=== PATIENT | male | born 1995 | race Caucasian/White ===

== ENCOUNTER 2019-03-20 17:50 | Emergency (ER) | payer SELFPAY ==
--- NOTE | 2019-03-20 17:55 | EDM.PDOC ---
ED HPI GENERAL MEDICAL PROBLEM - General Stated Complaint: RIGHT ARM INJURY Time Seen by Provider: 03/20/19 17:52 Source of Information: Reports: Patient History Limitations: Reports: No Limitations - History of Present Illness INITIAL COMMENTS - FREE TEXT/NARRATIVE: History of present illness: []Patient was trying to hit wood with his right hand slipped and hit his wrist instead. He has difficulty moving his ring and small finger contrary to pain. Patient is not up-to-date with tetanus Review of systems: As per history of present illness and below otherwise all systems reviewed and negative. Past medical history: As per history of present illness and as reviewed below otherwise noncontributory. Surgical history: As per history of present illness and as reviewed below otherwise noncontributory. Social history: No reported history of drug or alcohol abuse. Family history: As per history of present illness and as reviewed below otherwise noncontributory. Physical exam: General: Well developed, well nourished in NAD HEENT: Atraumatic, normocephalic, pupils reactive, negative for conjunctival pallor or scleral icterus, mucous membranes moist, throat clear, neck supple, nontender, trachea midline. Lungs: Clear to auscultation, breath sounds equal bilaterally, chest nontender. Heart: S1S2, regular, negative for clicks, rubs, or JVD. Abdomen: NABS, Soft, nondistended, nontender. Negative for masses or hepatosplenomegaly. Negative for costovertebral tenderness. Pelvis: Stable nontender. Genitourinary: Deferred. Rectal: Deferred. Extremities: Atraumatic, negative for cords or calf pain. Neurovascular unremarkable. Neuro: Awake, alert, oriented. Cranial nerves II through XII unremarkable. Cerebellum unremarkable. Motor and sensory unremarkable throughout. Exam nonfocal. Skin:warm and dry Diagnostics: X-ray right hand and forearm negative for fractures Therapeutics: Ibuprofen, tetanus status updated, splint ED Course: Stable Impression: Right hand/wrist brain with contusion Prescriptions: Patient declined any prescriptions for pain control Plan: Take meds as directed, follow up with your primary care physician, return to ER if symptoms worsen or change. Definitive disposition and diagnosis as appropriate pending reevaluation and review of above. Right Wrist Pain Score (Numeric/FACES): 5 - Related Data Allergies Allergy/AdvReac Type Severity Reaction Status Date / Time No Known Allergies Allergy Verified 03/20/19 18:01 Home Meds: Home Meds . [No Known Home Meds] 03/20/19 [History] Review of Systems - Review of Systems Review Of Systems: See Below ED EXAM, GENERAL - Physical Exam Exam: See Below (The history of present illness) Course - Vital Signs Last Recorded V/S: Last Vital Signs Temp 98.0 F 03/20/19 19:22 Pulse 68 03/20/19 19:22 Resp 18 03/20/19 19:22 BP 105/52 L 03/20/19 19:22 Pulse Ox 97 03/20/19 19:22 - Orders/Labs/Meds Orders: Active Orders 24 hr Category Date Time Status Splinting [RC] ASDIRECTED Care 03/20/19 19:08 Active Vaccines to be Administered [RC] PER UNIT ROUTINE Care 03/20/19 18:00 Active Meds: Medications Discontinued Medications Generic Name Dose Route Start Last Admin Trade Name Freq PRN Reason Stop Dose Admin Diphtheria/Tetanus/Acell Pertussis 0.5 ml 03/20/19 18:00 03/20/19 18:19 Adacel IM 03/20/19 18:01 0.5 ml .ONCE ONE Administration Ibuprofen 600 mg 03/20/19 18:00 03/20/19 18:20 Motrin PO 03/20/19 18:01 600 mg ONETIME ONE Administration Departure - Departure Time of Disposition: 10:39 Disposition: Home, Self-Care 01 Clinical Impression: Sprain of wrist Qualifiers: Encounter type: initial encounter Laterality: right Qualified Code(s): S63.501A - Unspecified sprain of right wrist, initial encounter - Discharge Information *PRESCRIPTION DRUG MONITORING PROGRAM REVIEWED*: No *COPY OF PRESCRIPTION DRUG MONITORING REPORT IN PATIENT LILY: No Instructions: Wrist Splint, Adult, [id number], Wrist Sprain, Adult Referrals: PCP,None [Primary Care Provider] - Forms: ED Department Discharge Additional Instructions: The following information is given to patients seen in the emergency department who are being discharged to home. This information is to outline your options for follow-up care. We provide all patients seen in our emergency department with a follow-up referral. The need for follow-up, as well as the timing and circumstances, are variable depending upon the specifics of your emergency department visit. If you don't have a primary care physician on staff, we will provide you with a referral. We always advise you to contact your personal physician following an emergency department visit to inform them of the circumstance of the visit and for follow-up with them and/or the need for any referrals to a consulting specialist. The emergency department will also refer you to a specialist when appropriate. This referral assures that you have the opportunity for follow-up care with a specialist. All of these measure are taken in an effort to provide you with optimal care, which includes your follow-up. Under all circumstances we always encourage you to contact your private physician who remains a resource for coordinating your care. When calling for follow-up care, please make the office aware that this follow-up is from your recent emergency room visit. If for any reason you are refused follow-up, please contact the [facility] Emergency Department at and asked to speak to the emergency department charge nurse. Ibuprofen, ice, elevation, follow up with PMD as needed [facility] [address] [place] [address] - My Orders Last 24 Hours: My Active Orders 03/20/19 18:00 Vaccines to be Administered [RC] PER UNIT ROUTINE 03/20/19 19:08 Splinting [RC] ASDIRECTED - Assessment/Plan Last 24 Hours: My Active Orders 03/20/19 18:00 Vaccines to be Administered [RC] PER UNIT ROUTINE 03/20/19 19:08 Splinting [RC] ASDIRECTED
[2019-03-20] MEDS ORDERED: Ibuprofen 600 MG Tab PO ONE (18:00)
[2019-03-20] MEDS ORDERED: Diphtheria,Pertussis(Acell),Tetanus Vaccine 0.5 ML Syringe IM ONE (18:00)
--- NOTE | 2019-03-20 18:54 | CR ---
HISTORY: Right hand pain. TECHNIQUE: Three views of the right hand. COMPARISON: No prior. FINDINGS: Ossicle along the distal aspect of the radial styloid appears corticated and chronic. This may reflect sequelae of remote nonunited fracture. No acute fracture. Joint spaces are maintained. No significant malalignment. IMPRESSION: 1. Ossicle along the distal aspect of the radial styloid appears corticated and chronic. This may reflect sequelae of remote nonunited fracture. 2. No acute fracture. Dictated by Patricio Mccarthy MD @ 03/20/2019 6:53:43 PM Dictated by: Patricio Mccarthy MD @ 03/20/2019 18:53:47 (Electronically Signed)
--- NOTE | 2019-03-20 18:54 | CR ---
HISTORY: Right forearm pain trauma. TECHNIQUE: Two views of the right forearm. COMPARISON: No prior. FINDINGS: The ossicle along the tip of the radial styloid appears more chronic and may reflect sequelae of remote nonunited fracture. No definite acute radial or ulnar fracture. The elbow joint space appears maintained. No radiopaque foreign body or soft tissue gas. IMPRESSION: 1. Ossicle along the distal aspect of the radial styloid appears corticated and chronic. This may reflect sequelae of remote nonunited fracture. 2. No definite acute fracture. Dictated by Patricio Mccarthy MD @ 03/20/2019 6:51:58 PM Dictated by: Patricio Mccarthy MD @ 03/20/2019 18:52:00 (Electronically Signed)
== END 2019-03-20 19:15 | disposition home or self-care (01) ==
LOC: MW.ED 17:50
DX: S63.501A Unspecified sprain of right wrist, initial encounter (principal); Z23 Encounter for immunization; W22.8XXA Striking against or struck by other objects, initial encounter
CPT/HCPCS: 73090; 73130; 90471; 90715; 99283; A9270

== ENCOUNTER 2019-03-21 21:46 | Emergency (ER) | payer SELFPAY ==
--- NOTE | 2019-03-21 22:15 | EDM.PDOC ---
ED HPI GENERAL MEDICAL PROBLEM - General Chief Complaint: Upper Extremity Injury/Pain Stated Complaint: PT RT ARM SWOLLEN Time Seen by Provider: 03/21/19 22:09 - History of Present Illness INITIAL COMMENTS - FREE TEXT/NARRATIVE: HISTORY AND PHYSICAL: History of present illness: Patient's 23-year-old white male presents 1 day status post tetanus shot with localized swelling and tenderness to his right deltoid is been no fever chills nausea vomiting or other complaints Review of systems: As per history of present illness and below otherwise all systems reviewed and negative. Past medical history: As per history of present illness and as reviewed below otherwise noncontributory. Surgical history: As per history of present illness and as reviewed below otherwise noncontributory. Social history: No reported history of drug or alcohol abuse. Family history: As per history of present illness and as reviewed below otherwise noncontributory. Physical exam: HEENT: Atraumatic, normocephalic, pupils reactive, negative for conjunctival pallor or scleral icterus, mucous membranes moist, throat clear, neck supple, nontender, trachea midline. Lungs: Clear to auscultation, breath sounds equal bilaterally, chest nontender. Heart: S1S2, regular, negative for clicks, rubs, or JVD. Abdomen: Soft, nondistended, nontender. Negative for masses or hepatosplenomegaly. Negative for costovertebral tenderness. Pelvis: Stable nontender. Genitourinary: Deferred. Rectal: Deferred. Extremities: Has small swelling at this tended to palpation with no erythema or warmth is right, negative for cords or calf pain. Neurovascular unremarkable. Neuro: Awake, alert, oriented. Cranial nerves II through XII unremarkable. Cerebellum unremarkable. Motor and sensory unremarkable throughout. Exam nonfocal. Diagnostics: None Therapeutics: None Impression: #1 localized allergic reaction ( tetanus shot) Definitive disposition and diagnosis as appropriate pending reevaluation and review of above. right deltoid Pain Score (Numeric/FACES): 9 - Related Data Allergies Allergy/AdvReac Type Severity Reaction Status Date / Time No Known Allergies Allergy Verified 03/21/19 21:58 Home Meds: Home Meds . [No Known Home Meds] 03/20/19 [History] Past Medical History - Past Health History Medical/Surgical History: Denies Medical/Surgical History HEENT History: Reports: None Cardiovascular History: Reports: None Respiratory History: Reports: None Gastrointestinal History: Reports: None Genitourinary History: Reports: None Musculoskeletal History: Reports: None Neurological History: Reports: None Psychiatric History: Reports: None Endocrine/Metabolic History: Reports: None Hematologic History: Reports: None Immunologic History: Reports: None Oncologic (Cancer) History: Reports: None Dermatologic History: Reports: None - Infectious Disease History Infectious Disease History: Reports: None - Past Surgical History Head Surgeries/Procedures: Reports: None Social & Family History - Family History Family Medical History: Noncontributory - Tobacco Use Smoking Status *Q: Current Every Day Smoker Years of Tobacco use: 11 Packs/Tins Daily: 1 - Caffeine Use Caffeine Use: Reports: Energy Drinks, Soda - Recreational Drug Use Recreational Drug Use: No Review of Systems - Review of Systems Review Of Systems: ROS reveals no pertinent complaints other than HPI. ED EXAM, GENERAL - Physical Exam Exam: See Below (Dictation) Course - Vital Signs Last Recorded V/S: Last Vital Signs Temp Pulse 82 03/21/19 21:59 Resp 18 03/21/19 21:59 BP 106/51 L 03/21/19 21:59 Pulse Ox 98 03/21/19 21:59 Departure - Departure Time of Disposition: 22:14 Disposition: Home, Self-Care 01 Condition: Good Clinical Impression: Allergic reaction - Discharge Information Referrals: PCP,None [Primary Care Provider] - Additional Instructions: The following information is given to patients seen in the emergency department who are being discharged to home. This information is to outline your options for follow-up care. We provide all patients seen in our emergency department with a follow-up referral. The need for follow-up, as well as the timing and circumstances, are variable depending upon the specifics of your emergency department visit. If you don't have a primary care physician on staff, we will provide you with a referral. We always advise you to contact your personal physician following an emergency department visit to inform them of the circumstance of the visit and for follow-up with them and/or the need for any referrals to a consulting specialist. The emergency department will also refer you to a specialist when appropriate. This referral assures that you have the opportunity for followup care with a specialist. All of these measure are taken in an effort to provide you with optimal care, which includes your followup. Under all circumstances we always encourage you to contact your private physician who remains a resource for coordinating your care. When calling for followup care, please make the office aware that this follow-up is from your recent emergency room visit. If for any reason you are refused follow-up, please contact the [facility] emergency department at and asked to speak to the emergency department charge nurse. Ice as discussed Motrin/Tylenol as directed follow-up primary medical doctor as needed as discussed and return as needed as discussed
== END 2019-03-21 22:24 | disposition home or self-care (01) ==
LOC: MW.ED 21:46
DX: M79.89 Other specified soft tissue disorders (principal); T50.A95A Adverse effect of other bacterial vaccines, initial encounter; F17.210 Nicotine dependence, cigarettes, uncomplicated
CPT/HCPCS: 99283